=== PATIENT | female | born 2000 | race Caucasian/White ===

== ENCOUNTER 2023-04-13 20:58 | Emergency (ER) | payer OTHER ==
[~2023-04-13] VITALS: Ht 172.7 cm; Wt 59.0 kg
[2023-04-13] MEDS ORDERED: FAMO-131 PO (22:26)
[2023-04-13] MEDS ORDERED: DIPH50CA37 MC (22:26)
[2023-04-13] MEDS ORDERED: dexaMETHasone SOD PHOSPHATE 10 MG/ML VIAL ONE (22:27)
[2023-04-13] MEDS ORDERED: FAMOTIDINE (20 MG) 20 MG TABLET ONE (22:27)
[2023-04-13] MEDS ORDERED: dexaMETHasone SOD PHOSPHATE 4 MG/ML VIAL IM ONE (22:30)
[2023-04-13] MEDS ORDERED: FAMOTIDINE (20 MG) 20 MG TABLET PO ONE (22:30)
[2023-04-13 22:33] VITALS: BP 122/65; TEMP 98.1; O2SAT 98
== END 2023-04-13 22:33 | disposition home or self-care (01) ==
LOC: ER 21:02
DX: L50.9 Urticaria, unspecified (principal); L29.9 Pruritus, unspecified; T37.8X5A Adverse effect of other specified systemic anti-infectives and antiparasitics, initial encounter; Z88.0 Allergy status to penicillin; Z88.1 Allergy status to other antibiotic agents; Y92.89 Other specified places as the place of occurrence of the external cause
CPT/HCPCS: 99285; 96372; J1100